=== PATIENT | female | born 1960 | race Caucasian/White ===

== ENCOUNTER 2021-11-04 13:44 | Outpatient (CLI) | payer BC ==
[2021-11-04 15:07] LABS: #Basophils 0.1 10x3/uL (0.0-0.2); #Eosinphils 0.4 10x3/uL (0.0-0.5); #Neutrophils 13.7 10x3/uL (1.5-8.4); %Basophils 0.6 % (0.0-2.0); %Eosinophils 1.9 % (0.0-6.0); %Lymphocytes 15.5 % (18.0-47.0); %Monocytes 5.7 % (0.0-10.0); %Neutrophils 75.6 % (40.0-75.0); Hemoglobin 14.3 g/dL (12.0-15.5); Mean Corpuscular HGB CONC 35.4 g/dL (32.0-36.0); Mean Corpuscular Hemoglobin 32.1 pg (27.0-33.0); Mean Corpuscular Volume 90.6 fl (81.6-98.3); Mean Platelet Volume 10.1 fl (7.4-10.4); Platelet Count 402 10x3/uL (150-450); RBC Distribution Width 13.2 % (11.5-14.5); Red Blood Cell (RBC) Count 4.46 10x6/uL (3.90-5.03); White Blood Cell (WBC) Count 18.1 10x3/uL (3.5-10.5)
[2021-11-04 15:30] LABS: INR-International Normal Ratio 0.9; Prothrombin Time 10.3 sec (9.5-12.1)
[2021-11-04 15:33] LABS: Anion Gap 18 mmol/L (10-20); BUN (Urea Nitrogen) 14 mg/dL (9.8-20.1); Calc. Creatinine Clearance 0 mL/min (70-130); Carbon Dioxide 26 mmol/L (22-29); Chloride 100 mmol/L (98-107); Glucose 88 mg/dL (70-105); Potassium 3.7 mmol/L (3.5-5.1); Sodium 140 mmol/L (136-145)
[2021-11-05 18:07] LABS: SARS-CoV-2 PCR by NAA Not Detected (NotDetected)
== END 2021-11-04 13:45 | disposition home or self-care (01) ==
LOC: LABBT 13:44
PROVIDERS: ATTEND Orthopaedic Surgery
DX: Z01.818 Encounter for other preprocedural examination (principal); M87.08 Idiopathic aseptic necrosis of bone, other site; Z20.822 Contact with and (suspected) exposure to COVID-19
CPT/HCPCS: 80048; 85025; 85610; 87081; 93005; 93010; U0003; U0005

== ENCOUNTER 2021-11-09 06:30 | Inpatient (IN) | payer BC ==
[2021-11-03 14:33] VITALS: BMI 32.4
[2021-11-09] MEDS ORDERED: Tranexamic Acid 1,000 MG/10 ML VIAL ONE (07:48)
[2021-11-09] MEDS ORDERED: Sodium Chloride 0.9% 100 ML ONE (07:48)
[2021-11-09] MEDS ORDERED: Midazolam HCl 2 mg/2 ml Vial ONE (07:56)
[2021-11-09] MEDS ORDERED: Vancomycin HCl 1.5 GM in Sodium Chloride 0.9% 250 ML 300 ML IVPB SCH (08:00)
[2021-11-09] MEDS ORDERED: Fentanyl 100 MCG/2 ML VIAL SLOW IVP PRN (08:50)
[2021-11-09] MEDS ORDERED: Ondansetron PF 4 MG/2 ML Vial IVP PRN ×2 (08:50→09:00)
[2021-11-09] MEDS ORDERED: Acetaminophen 325 MG TAB PO PRN (08:50)
[2021-11-09] MEDS ORDERED: diphenhydrAMINE 25 MG CAP PO PRN (08:50)
[2021-11-09] MEDS ORDERED: Zolpidem Tartrate 5 MG TAB PO PRN ×2 (08:50→09:00)
[2021-11-09] MEDS ORDERED: Promethazine HCl 25 MG/ML VIAL IM PRN ×2 (08:50→09:00)
[2021-11-09] MEDS ORDERED: Bupivacaine PF 0.5% 30 ML VIAL ONE (08:52)
[2021-11-09] MEDS ORDERED: Non-Formulary Item 1 EACH (Albuterol Sulfate [Albuterol Sulfate Hfa] 8.5 GM Hfa.Aer.Ad) IH PRN (08:52)
[2021-11-09] MEDS ORDERED: Non-Formulary Item 1 EACH (Oxycodone Hcl/Acetaminophen [Oxycodone-Acetaminophen 10-325] 1 PO PRN (08:52)
[2021-11-09] MEDS ORDERED: traMADol HCl 50 MG TAB PO PRN ×2 (09:00)
[2021-11-09] MEDS ORDERED: TABLE PO SCH (09:00)
[2021-11-09] MEDS ORDERED: FOLIC AC PO SCH (09:00)
[2021-11-09] MEDS ORDERED: VIT BCOMP C PO SCH (09:00)
[2021-11-09] MEDS ORDERED: [UNRECOGNIZED DRUG - OTHER] PO SCH (09:00)
[2021-11-09] MEDS ORDERED: VIT D3 PO SCH (09:00)
[2021-11-09] MEDS ORDERED: CYANOCOBALAMIN 5000 MCG PO SCH (09:00)
[2021-11-09] MEDS ORDERED: Aspirin Chewable 81 MG TAB PO SCH (09:00)
[2021-11-09] MEDS ORDERED: Non-Formulary Item 1 EACH (Cholecalciferol (Vitamin D3) [Vitamin D3] 50 MCG Capsule) PO SCH (09:00)
[2021-11-09] MEDS ORDERED: [UNRECOGNIZED DRUG - OTHER] PO SCH (09:00)
[2021-11-09] MEDS ORDERED: Ropivacaine 0.2% 550 ML 550 ML NERVE BLCK SCH (09:00)
[2021-11-09] MEDS ORDERED: Fentanyl 100 MCG/2 ML VIAL IV PRN (09:01)
[2021-11-09] MEDS ORDERED: ceFAZolin Sodium (SDC) 2 GM/100 ML BAG ONE (09:04)
[2021-11-09] MEDS ORDERED: Albuterol 200 PUFF (6.7GM INHALER) INH PRN (09:09)
[2021-11-09] MEDS ORDERED: HYDROmorphone 0.5 MG/0.5 ML SYRINGE ONE (09:11)
[2021-11-09] MEDS ORDERED: Ondansetron PF 4 MG/2 ML Vial ONE (09:13)
[2021-11-09] MEDS ORDERED: Bupivacaine HCl 0.5%/Epinephrine 1:200,000/PF 30 ml Vial ONE (09:13)
[2021-11-09] MEDS ORDERED: PROPOFOL 200 MG/20 ML VIAL ONE (09:13)
[2021-11-09] MEDS ORDERED: ePHEDrine 50 MG/ML VIAL ONE (09:13)
[2021-11-09] MEDS ORDERED: Lidocaine 1% PF 5 ML VIAL ONE (09:13)
[2021-11-09] MEDS ORDERED: Ketorolac Tromethamine 30 MG/ML VIAL ONE (09:13)
[2021-11-09] MEDS ORDERED: Dexamethasone 20 MG/5 ML VIAL ONE (09:13)
[2021-11-09] MEDS ORDERED: Fentanyl 250 MCG/5 ML VIAL ONE (11:14)
[2021-11-09] MEDS: Ketorolac Tromethamine 30 MG/ML VIAL IVP SCH ×2 (12:00→17:36)
[2021-11-09] MEDS ORDERED: Ondansetron HCl/PF 4 MG/2 ML Vial IVP PRN (12:15)
[2021-11-09] MEDS ORDERED: HYDROmorphone 2 MG/ML VIAL SLOW IVP PRN (12:15)
[2021-11-09] MEDS ORDERED: Promethazine HCl 25 MG/ML VIAL IM/IV PRN (12:15)
[2021-11-09] MEDS ORDERED: HYDROmorphone 2 MG/ML VIAL ONE (12:57)
[2021-11-09] MEDS ORDERED: CEFAZOLIN 2 GM in Sodium Chloride 0.9% 100 ML IVPB SCH (14:00)
[2021-11-09] MEDS ORDERED: Ketorolac Tromethamine 30 MG/ML VIAL IVP SCH (14:00)
[2021-11-09] MEDS: oxyCODONE/Acetaminophen 5 mg/325 mg Tablet PO PRN ×2 (15:27→20:15)
[2021-11-09] MEDS: Ferrous Gluconate 324 MG TAB PO SCH ×2 (15:47→20:18)
[2021-11-09] MEDS: Aspirin 81 mg Enteric Coated Tablet PO SCH ×2 (15:47→20:15)
[2021-11-09] MEDS: Multivitamin W/ Minerals 1 TAB PO SCH (15:47)
[2021-11-09] MEDS: Senokot S 8.6-50 MG TAB PO SCH ×2 (15:48→20:17)
[2021-11-09] MEDS: Oxybutynin 5 MG TAB PO SCH ×2 (15:49→20:18)
[2021-11-09] MEDS: Lisinopril/Hydrochlorothiazide 20 mg/12.5 mg Tablet PO SCH (15:50)
[2021-11-09] MEDS: CEFAZOLIN 2 GM, Admixture Fee 1 EACH in Sodium Chloride 0.9% 100 ML IVPB SCH (17:36)
[2021-11-09] MEDS: traZODone HCl 50 MG TAB PO SCH (20:16)
[2021-11-09] MEDS: Atorvastatin Calcium 20 MG TAB PO SCH (20:16)
[2021-11-09] MEDS: Nitrofurantoin Monohyd/M-Cryst 100 MG CAP PO SCH (20:17)
[2021-11-09] MEDS: Venlafaxine HCl XR 150 MG CAP PO SCH (20:18)
[2021-11-09] MEDS: Cholecalciferol 1,000 UNITS (25 MCG) TAB PO SCH (20:18)
[2021-11-09] MEDS ORDERED: Non-Formulary Item 1 EACH (Trazodone Hcl [Trazodone Hcl] 100 MG Tablet) PO SCH (21:00)
[2021-11-09] MEDS ORDERED: Non-Formulary Item 1 EACH (Nitrofurantoin Macrocrystal [Nitrofurantoin] 100 MG Capsule) PO SCH (21:00)
[2021-11-09] MEDS ORDERED: Non-Formulary Item 1 EACH (Diltiazem Hcl [Diltiazem 24hr Cd] 240 MG Cap.Er.24h) PO SCH (21:00)
[2021-11-09] MEDS: Letrozole 2.5 MG TAB PO SCH (21:30)
[2021-11-10] MEDS: Ketorolac Tromethamine 30 MG/ML VIAL IVP SCH ×4 (00:10→17:49)
[2021-11-10] MEDS: oxyCODONE/Acetaminophen 5 mg/325 mg Tablet PO PRN ×5 (01:22→18:45)
[2021-11-10] MEDS: CEFAZOLIN 2 GM, Admixture Fee 1 EACH in Sodium Chloride 0.9% 100 ML IVPB SCH (01:22)
[2021-11-10 05:26] LABS: Hemoglobin 11.5 g/dL (12.0-16.0); Mean Corpuscular HGB CONC 34.2 g/dL (32.0-36.0); Mean Corpuscular Hemoglobin 33.1 pg (27.0-31.0); Mean Corpuscular Volume 96.9 fL (78.0-98.0); Mean Platelet Volume 6.9 fL (7.4-10.4); Platelet Count 253 thou/uL (130-400); RBC Distribution Width 12.8 % (11.5-14.5); Red Blood Cell (RBC) Count 3.47 mill/uL (4.20-5.40); White Blood Cell (WBC) Count 10.3 thou/uL (4.8-10.8)
[2021-11-10] MEDS ORDERED: FLU VACC QS2021-22(6MOS UP)/PF 60 MCG/0.5 ML SYRINGE IM ONE (09:00)
[2021-11-10] MEDS ORDERED: Multivit, Therapeutic 1 TAB PO SCH (09:00)
[2021-11-10] MEDS: Oxybutynin 5 MG TAB PO SCH ×2 (09:23→20:08)
[2021-11-10] MEDS: Cyanocobalamin (Vitamin B-12) 1,000 MCG TAB PO SCH (09:23)
[2021-11-10] MEDS: Multivitamin W/ Minerals 1 TAB PO SCH (09:23)
[2021-11-10] MEDS: Senokot S 8.6-50 MG TAB PO SCH ×2 (09:24→20:07)
[2021-11-10] MEDS: Cholecalciferol 1,000 UNITS (25 MCG) TAB PO SCH ×2 (09:24→20:08)
[2021-11-10] MEDS: Ferrous Gluconate 324 MG TAB PO SCH ×2 (09:24→20:07)
[2021-11-10] MEDS: Lisinopril/Hydrochlorothiazide 20 mg/12.5 mg Tablet PO SCH (09:24)
[2021-11-10] MEDS: Aspirin 81 mg Enteric Coated Tablet PO SCH ×2 (09:24→20:07)
[2021-11-10] MEDS: Venlafaxine HCl XR 150 MG CAP PO SCH (20:07)
[2021-11-10] MEDS: Nitrofurantoin Monohyd/M-Cryst 100 MG CAP PO SCH (20:07)
[2021-11-10] MEDS: traZODone HCl 50 MG TAB PO SCH (20:08)
[2021-11-10] MEDS: Atorvastatin Calcium 20 MG TAB PO SCH (20:08)
[2021-11-10] MEDS: Letrozole 2.5 MG TAB PO SCH (20:27)
[2021-11-11] MEDS: Ketorolac Tromethamine 30 MG/ML VIAL IVP SCH ×2 (00:22→06:16)
[2021-11-11] MEDS: oxyCODONE/Acetaminophen 5 mg/325 mg Tablet PO PRN ×6 (00:29→23:17)
[2021-11-11] MEDS: Aspirin 81 mg Enteric Coated Tablet PO SCH ×2 (08:17→19:58)
[2021-11-11] MEDS: Cholecalciferol 1,000 UNITS (25 MCG) TAB PO SCH ×2 (08:18→19:55)
[2021-11-11] MEDS: Cyanocobalamin (Vitamin B-12) 1,000 MCG TAB PO SCH (08:20)
[2021-11-11] MEDS: Ferrous Gluconate 324 MG TAB PO SCH ×2 (08:22→19:56)
[2021-11-11] MEDS: Lisinopril/Hydrochlorothiazide 20 mg/12.5 mg Tablet PO SCH (08:26)
[2021-11-11] MEDS: Multivitamin W/ Minerals 1 TAB PO SCH (08:27)
[2021-11-11] MEDS: Oxybutynin 5 MG TAB PO SCH ×2 (08:28→19:54)
[2021-11-11] MEDS: Senokot S 8.6-50 MG TAB PO SCH ×2 (08:28→20:01)
[2021-11-11] MEDS: Nicotine 21 MG PATCH TD SCH (09:32)
[2021-11-11] MEDS: Letrozole 2.5 MG TAB PO SCH (19:53)
[2021-11-11] MEDS: Venlafaxine HCl XR 150 MG CAP PO SCH (19:54)
[2021-11-11] MEDS: traZODone HCl 50 MG TAB PO SCH (19:54)
[2021-11-11] MEDS: Atorvastatin Calcium 20 MG TAB PO SCH (19:56)
[2021-11-11] MEDS: Nitrofurantoin Monohyd/M-Cryst 100 MG CAP PO SCH (20:00)
[2021-11-12] MEDS: oxyCODONE/Acetaminophen 5 mg/325 mg Tablet PO PRN ×3 (04:15→12:43)
[2021-11-12] MEDS: Nicotine 21 MG PATCH TD SCH (08:46)
[2021-11-12] MEDS: Multivitamin W/ Minerals 1 TAB PO SCH (08:47)
[2021-11-12] MEDS: Cyanocobalamin (Vitamin B-12) 1,000 MCG TAB PO SCH (08:47)
[2021-11-12] MEDS: Ferrous Gluconate 324 MG TAB PO SCH (08:47)
[2021-11-12] MEDS: Aspirin 81 mg Enteric Coated Tablet PO SCH (08:48)
[2021-11-12] MEDS: Lisinopril/Hydrochlorothiazide 20 mg/12.5 mg Tablet PO SCH (08:48)
[2021-11-12] MEDS: Oxybutynin 5 MG TAB PO SCH (08:48)
[2021-11-12] MEDS: Cholecalciferol 1,000 UNITS (25 MCG) TAB PO SCH (08:48)
[2021-11-12] MEDS: Senokot S 8.6-50 MG TAB PO SCH (08:49)
[2021-11-12 12:15] VITALS: BP 144/78; TEMP 98.1
== END 2021-11-12 14:15 | disposition home health service (06) | DRG 470 ==
LOC: SDC 06:30 → SJJU 08:50 → EDSTATUS 14:00 → SDC 15:25 → SJJU 15:25 → OBSVTOIN 11-11 07:36
PROVIDERS: ADMIT Orthopaedic Surgery; ATTEND Orthopaedic Surgery
PROC: 0SRD0J9 Replacement of Left Knee Joint with Synthetic Substitute, Cemented, Open Approach (ICD-10-PCS; principal; 2021-11-09)
DX: M17.12 Unilateral primary osteoarthritis, left knee (principal); M87.08 Idiopathic aseptic necrosis of bone, other site
CPT/HCPCS: 36415; 51701; 51798; 85027; 90471; 90686; 96365; 96375; 96376; A4306; C1713; C1776; G0008; G0378; J0690; J1100; J1170; J1885; J2250; J2405; J2704; J2795; J3010; J3370; J3490; J7050; S0020

== ENCOUNTER 2022-03-23 12:32 | Outpatient (CLI) | payer BC ==
[2022-03-23 13:54] LABS: #Basophils 0.1 10x3/uL (0.0-0.2); #Eosinphils 0.4 10x3/uL (0.0-0.5); #Monocytes 0.6 10x3/uL (0.0-1.1); #Neutrophils 6.4 10x3/uL (1.5-8.4); %Basophils 0.8 % (0.0-2.0); %Lymphocytes 28.4 % (18.0-47.0); %Monocytes 5.6 % (0.0-10.0); %Neutrophils 60.5 % (40.0-75.0); Hemoglobin 13.9 g/dL (12.0-15.5); Mean Corpuscular HGB CONC 35.5 g/dL (32.0-36.0); Mean Corpuscular Hemoglobin 31.6 pg (27.0-33.0); Mean Corpuscular Volume 89.1 fl (81.6-98.3); Mean Platelet Volume 10.2 fl (7.4-10.4); Platelet Count 319 10x3/uL (150-450); RBC Distribution Width 13.6 % (11.5-14.5); White Blood Cell (WBC) Count 10.5 10x3/uL (3.5-10.5)
[2022-03-23 14:10] LABS: INR-International Normal Ratio 0.9
[2022-03-23 14:12] LABS: Anion Gap 16 mmol/L (10-20); BUN (Urea Nitrogen) 15 mg/dL (9.8-20.1); Calc. Creatinine Clearance 0 mL/min (70-130); Calcium 10.1 mg/dL (7.8-10.44); Carbon Dioxide 27 mmol/L (23-31); Chloride 100 mmol/L (98-107); Estimated GFR 54; Glucose 89 mg/dL (80-115); Potassium 4.1 mmol/L (3.5-5.1); Sodium 139 mmol/L (136-145)
== END 2022-03-23 12:33 | disposition home or self-care (01) ==
LOC: LABBT 12:32
PROVIDERS: ATTEND Orthopaedic Surgery
DX: Z01.812 Encounter for preprocedural laboratory examination (principal); M47.12 Other spondylosis with myelopathy, cervical region; Z20.822 Contact with and (suspected) exposure to COVID-19
CPT/HCPCS: 80048; 85025; 85610; 87081; 87811

== ENCOUNTER 2022-03-28 05:42 | Observation (INO) | payer BC ==
[2022-03-24 15:12] VITALS: BMI 30.2
[2022-03-28] MEDS ORDERED: Lidocaine 1% MPF 2 ML VIAL ONE (05:57)
[2022-03-28] MEDS ORDERED: fentaNYL Citrate/PF 100 MCG/2 ML SYRINGE ONE (06:11)
[2022-03-28] MEDS ORDERED: Vancomycin (BATCH) 1.5 GRAM/300 ML BAG ONE (06:22)
[2022-03-28] MEDS ORDERED: Sodium Chloride 0.9% 100 ML ONE ×2 (06:22→07:00)
[2022-03-28] MEDS ORDERED: Tranexamic Acid 1,000 MG/10 ML VIAL ONE (06:22)
[2022-03-28] MEDS ORDERED: Bupivacaine PF 0.5% 30 ML VIAL ONE (06:24)
[2022-03-28] MEDS ORDERED: Midazolam HCl 2 mg/2 ml Vial ONE ×2 (06:41→07:06)
[2022-03-28] MEDS ORDERED: diphenhydrAMINE 25 MG CAP PO PRN (06:55)
[2022-03-28] MEDS ORDERED: HYDROcodone/Acetaminophen 10/325 mg Tablet PO PRN ×4 (06:55→09:30)
[2022-03-28] MEDS ORDERED: Promethazine HCl 25 MG/ML VIAL IM PRN ×2 (06:55→09:30)
[2022-03-28] MEDS ORDERED: Zolpidem Tartrate 5 MG TAB PO PRN ×2 (06:55→09:30)
[2022-03-28] MEDS ORDERED: Acetaminophen 325 MG TAB PO PRN (06:55)
[2022-03-28] MEDS ORDERED: Ondansetron PF 4 MG/2 ML Vial IVP PRN ×2 (06:55→09:30)
[2022-03-28] MEDS ORDERED: Albuterol 200 PUFF (6.7GM INHALER) INH PRN (06:57)
[2022-03-28] MEDS ORDERED: Non-Formulary Item 1 EACH (Oxycodone Hcl/Acetaminophen [Oxycodone-Acetaminophen 10-325] 1 PO PRN (06:57)
[2022-03-28] MEDS ORDERED: ceFAZolin 2 GM/Dextrose 50 ML 2 GM in Premix Bag 1 BAG IVPB SCH (07:00)
[2022-03-28] MEDS ORDERED: CEFAZOLIN 2 GM VIAL ONE (07:00)
[2022-03-28] MEDS ORDERED: Albuterol Sulfate 2.5 mg/3 ml Neb NEB PRN (07:12)
[2022-03-28] MEDS ORDERED: Dexamethasone 20 MG/5 ML VIAL ONE (07:14)
[2022-03-28] MEDS ORDERED: Lidocaine 1% PF 5 ML VIAL ONE (07:14)
[2022-03-28] MEDS ORDERED: PROPOFOL 200 MG/20 ML VIAL ONE (07:14)
[2022-03-28] MEDS ORDERED: Glycopyrrolate 0.2 MG/ML 5 ML SYRINGE ONE (07:14)
[2022-03-28] MEDS ORDERED: Ondansetron PF 4 MG/2 ML Vial ONE (07:14)
[2022-03-28] MEDS ORDERED: Bupivacaine HCl 0.5%/Epinephrine 1:200,000/PF 30 ml Vial ONE (07:14)
[2022-03-28] MEDS ORDERED: oxyCODONE/Acetaminophen 5 mg/325 mg Tablet PO PRN (07:15)
[2022-03-28] MEDS ORDERED: HYDROmorphone 2 MG/ML VIAL ONE (07:54)
[2022-03-28] MEDS ORDERED: TABLE PO SCH (09:00)
[2022-03-28] MEDS ORDERED: Aspirin Chewable 81 MG TAB PO SCH (09:00)
[2022-03-28] MEDS ORDERED: VIT D3 PO SCH (09:00)
[2022-03-28] MEDS ORDERED: FOLIC AC PO SCH (09:00)
[2022-03-28] MEDS ORDERED: [UNRECOGNIZED DRUG - OTHER] PO SCH (09:00)
[2022-03-28] MEDS ORDERED: VIT BCOMP C PO SCH (09:00)
[2022-03-28] MEDS ORDERED: Non-Formulary Item 1 EACH (Cholecalciferol (Vitamin D3) [Vitamin D3] 50 MCG Capsule) PO SCH (09:00)
[2022-03-28] MEDS ORDERED: Fentanyl 100 MCG/2 ML VIAL ONE ×2 (09:15→09:56)
[2022-03-28] MEDS ORDERED: Meperidine HCl/PF 25 MG/ML VIAL ONE (09:19)
[2022-03-28] MEDS ORDERED: traMADol HCl 50 MG TAB PO PRN ×2 (09:30)
[2022-03-28] MEDS ORDERED: Ropivacaine 0.2% 550 ML 550 ML NERVE BLCK SCH (09:30)
[2022-03-28] MEDS: Oxybutynin 5 MG TAB PO SCH ×2 (11:02→20:20)
[2022-03-28] MEDS: oxyCODONE/Acetaminophen 5 mg/325 mg Tablet PO PRN ×4 (11:02→22:35)
[2022-03-28] MEDS: Fentanyl 100 MCG/2 ML VIAL SLOW IVP PRN ×2 (11:11→18:41)
[2022-03-28] MEDS: Ketorolac Tromethamine 30 MG/ML VIAL IVP SCH ×3 (13:54→22:34)
[2022-03-28] MEDS: CEFAZOLIN 2 GM in Sodium Chloride 0.9% 100 ML IVPB SCH ×2 (13:55→22:34)
[2022-03-28] MEDS ORDERED: Ketorolac Tromethamine 30 MG/ML VIAL IM SCH (14:00)
[2022-03-28] MEDS: Stress 600 With Zinc 1 TAB PO SCH (14:21)
[2022-03-28] MEDS: Aspirin 81 mg Enteric Coated Tablet PO SCH ×2 (14:21→20:18)
[2022-03-28] MEDS: Cholecalciferol 1,000 UNITS (25 MCG) TAB PO SCH ×2 (14:21→20:18)
[2022-03-28] MEDS: Lisinopril/Hydrochlorothiazide 20 mg/12.5 mg Tablet PO SCH (14:58)
[2022-03-28] MEDS ORDERED: Nicotine 21 MG PATCH TOP SCH (15:30)
[2022-03-28] MEDS: Sodium Chloride 0.9% 1,000 ML IV SCH ×2 (17:08→17:17)
[2022-03-28] MEDS ORDERED: Non-Formulary Item 1 EACH (Nitrofurantoin Macrocrystal [Nitrofurantoin] 100 MG Capsule) PO SCH (21:00)
[2022-03-28] MEDS ORDERED: traZODone HCl 150 MG TAB PO SCH (21:00)
[2022-03-28] MEDS ORDERED: Letrozole 2.5 MG TAB PO SCH (21:00)
[2022-03-28] MEDS ORDERED: Non-Formulary Item 1 EACH (Trazodone Hcl [Trazodone Hcl] 100 MG Tablet) PO SCH (21:00)
[2022-03-28] MEDS ORDERED: Venlafaxine HCl XR 150 MG CAP PO SCH (21:00)
[2022-03-28] MEDS ORDERED: Atorvastatin Calcium 20 MG TAB PO SCH (21:00)
[2022-03-28] MEDS ORDERED: Nitrofurantoin Monohyd/M-Cryst 100 MG CAP PO SCH (21:00)
[2022-03-29] MEDS: Sodium Chloride 0.9% 1,000 ML IV SCH (02:55)
[2022-03-29 05:13] LABS: Mean Corpuscular HGB CONC 33.9 g/dL (32.0-36.0); Mean Corpuscular Hemoglobin 32.6 pg (27.0-31.0); Mean Platelet Volume 7.4 fL (7.4-10.4); Platelet Count 204 thou/uL (130-400); RBC Distribution Width 12.7 % (11.5-14.5); Red Blood Cell (RBC) Count 3.38 mill/uL (4.20-5.40); White Blood Cell (WBC) Count 16.3 thou/uL (4.8-10.8)
[2022-03-29] MEDS: Ketorolac Tromethamine 30 MG/ML VIAL IVP SCH (05:18)
[2022-03-29] MEDS: oxyCODONE/Acetaminophen 5 mg/325 mg Tablet PO PRN ×2 (05:19→09:01)
[2022-03-29 07:50] VITALS: BP 127/67; TEMP 97.6
[2022-03-29] MEDS: Oxybutynin 5 MG TAB PO SCH (08:27)
[2022-03-29] MEDS: Lisinopril/Hydrochlorothiazide 20 mg/12.5 mg Tablet PO SCH (08:27)
[2022-03-29] MEDS: Stress 600 With Zinc 1 TAB PO SCH (08:28)
[2022-03-29] MEDS: Cholecalciferol 1,000 UNITS (25 MCG) TAB PO SCH (08:29)
[2022-03-29] MEDS: Aspirin 81 mg Enteric Coated Tablet PO SCH (08:32)
[2022-03-29] MEDS ORDERED: Cyanocobalamin (Vitamin B-12) 1,000 MCG TAB PO SCH (09:00)
[2022-03-29] MEDS ORDERED: Senokot S 8.6-50 MG TAB PO SCH (09:00)
[2022-03-29] MEDS ORDERED: Multivitamin W/ Minerals 1 TAB PO SCH (09:00)
[2022-03-29] MEDS ORDERED: Ferrous Gluconate 324 MG TAB PO SCH (09:00)
[2022-03-29] MEDS: Fentanyl 100 MCG/2 ML VIAL SLOW IVP PRN (09:56)
== END 2022-03-29 11:15 | disposition home or self-care (01) ==
LOC: SDC 05:42 → SURG A 06:55 → SDC 11:05
PROVIDERS: ADMIT Orthopaedic Surgery; ATTEND Orthopaedic Surgery
PROC: 0SRC0J9 Replacement of Right Knee Joint with Synthetic Substitute, Cemented, Open Approach (ICD-10-PCS; principal; 2022-03-28)
PROC: 8E0YXBZ Computer Assisted Procedure of Lower Extremity (ICD-10-PCS; 2022-03-28)
PROC: 3E0T3BZ Introduction of Anesthetic Agent into Peripheral Nerves and Plexi, Percutaneous Approach (ICD-10-PCS; 2022-03-28)
DX: M17.11 Unilateral primary osteoarthritis, right knee (principal); M87.851 Other osteonecrosis, right femur; F17.200 Nicotine dependence, unspecified, uncomplicated; I10 Essential (primary) hypertension; I25.10 Atherosclerotic heart disease of native coronary artery without angina pectoris; I25.2 Old myocardial infarction; M81.0 Age-related osteoporosis without current pathological fracture; Z85.3 Personal history of malignant neoplasm of breast; Z79.2 Long term (current) use of antibiotics; Z79.82 Long term (current) use of aspirin; Z79.83 Long term (current) use of bisphosphonates; Z79.899 Other long term (current) drug therapy; Z96.652 Presence of left artificial knee joint
CPT/HCPCS: 36415; 85027; 96365; 96366; 96375; 96376; A4306; C1713; C1776; G0378; J0690; J1100; J1170; J1885; J2175; J2250; J2405; J2704; J2795; J3010; J3370; J3490; J7050; J7620; S0020